=== PATIENT | male | born 2000 | race Two or more races ===

== ENCOUNTER 2022-08-24 15:33 | Emergency (ER) | payer OTHER ==
[~2022-08-24] VITALS: Ht 170.2 cm; Wt 65.8 kg
[~2022-08-24 15:33] MED LIST: NON
[2022-08-24] MEDS ORDERED: ONDANSETRON ODT4 MG PO (18:20)
== END 2022-08-24 18:37 | disposition home or self-care (01) ==
LOC: EMR PED 15:33
DX: G44.009 Cluster headache syndrome, unspecified, not intractable (principal); Z20.822 Contact with and (suspected) exposure to COVID-19